=== PATIENT | female | born 1985 | race Hispanic/Latino ===

== ENCOUNTER 2016-12-27 19:17 | Emergency (ER) | payer MEDICAID ==
[2016-12-27 20:10] LABS: Urine Drugs of Abuse Note Disclamer
[2016-12-27 20:22] LABS: Bacteria,Urine 1+ /HPF (Negative); Bilirubin,Urine NEG (Negative); Blood,Urine NEG (Negative); Ketones,Urine TR mg/dL (Negative); Leukocyte Esterase,Urine NEG (Negative); Mucus,Urine 3+ /HPF; Nitrite,Urine NEG (Negative); RBC,Urine < 1.0 /HPF (0.0-6.0); Urobilinogen,Urine < 2.0 mg/dL (<2.0)
[2016-12-27 20:41] LABS: Basophils % (Auto) 0.5 % (0.0-1.8); Eosinophils % (Auto) 0.5 % (0.0-4.3); Hematocrit 44.4 % (30.3-42.9); Hemoglobin 14.7 gm/dl (10.1-14.3); Mean Corpuscular HGB Conc 33 % (30-34); Mean Corpuscular Hemoglobin 28 pg (28-32); Mean Corpuscular Volume 85 fl (79-97); Platelet Count 353 K/mm3 (140-440); Red Blood Count 5.21 M/mm3 (3.65-5.03); Red Cell Distribution Width 14.5 % (13.2-15.2); White Blood Count 13.5 K/mm3 (4.5-11.0)
[2016-12-27 21:09] LABS: Anion Gap 24 mmol/L; Blood Urea Nitrogen 9 mg/dL (7-17); Calcium 9.7 mg/dL (8.4-10.2); Carbon Dioxide 23 mmol/L (22-30); Chloride 95.9 mmol/L (98-107); Glucose 332 mg/dL (65-100); Sodium 139 mmol/L (137-145)
--- NOTE | 2016-12-27 22:21 | Emergency Department Report ---
ED General Adult HPI - General Chief complaint: Psych Stated complaint: POSSIBLY 1013 Time Seen by Provider: 12/27/16 20:47 Source: patient, RN notes reviewed, old records reviewed Mode of arrival: Ambulatory Limitations: No Limitations - History of Present Illness Initial comments: This is a 31-year-old female, the patient is previously unknown to me. The patient has a past medical history of psychiatric disease. As per triage documentation, patient is brought to the hospital by police department from a personal chcf, apparently the patient has been taking her psychiatric meds , and the patient endorses suicidality. She is not homicidal, she is not experiencing hallucinations, and she does not have access to guns or firearms. As per documentation from Police Department "I want to kill myself." The patient indicates no exacerbating or relieving factors, and she indicates that the symptoms have since resolved. No complaints at this time. Consistency: now resolved Improves with: none Worsens with: none Associated Symptoms: denies other symptoms - Related Data Home Medications Medication Instructions Recorded Confirmed Last Taken Glimepiride [Amaryl] 4 mg PO BID 11/24/15 12/28/16 11/23/15 Insulin NPH Hum/Reg Insulin Hm 22 unit SQ QHS 11/24/15 12/28/16 11/23/15 [HumuLIN 70/30 Kwikpen] [place] Carbonate 150 mg PO BID 11/24/15 12/28/16 Unknown cloZAPine 100 mg PO DAILY 11/24/15 12/28/16 Unknown cloZAPine 350 mg PO QHS 11/24/15 12/28/16 Unknown metFORMIN [Glucophage] 850 mg PO BID 11/24/15 12/28/16 11/23/15 risperiDONE [RisperDAL] 2 mg PO BID 11/24/15 12/28/16 Unknown Allergies Allergy/AdvReac Type Severity Reaction Status Date / Time aripiprazole [From Abilify] Allergy Hives Verified 02/17/13 22:10 chlorpromazine HCl Allergy Hives Verified 02/17/13 22:10 [From Thorazine] codeine Allergy Hives Verified 02/17/13 22:10 haloperidol [From Haldol] Allergy Hives Verified 02/17/13 22:10 haloperidol lactate Allergy Hives Verified 02/17/13 22:10 [From Haldol] lorazepam [From Ativan] Allergy Hives Verified 02/17/13 22:10 Penicillins Allergy Hives Verified 02/17/13 22:10 ziprasidone HCl [From Geodon] Allergy Hives Verified 02/17/13 22:10 ziprasidone mesylate Allergy Hives Verified 02/17/13 22:10 [From Geodon] ED Review of Systems ROS: Stated complaint: POSSIBLY 1013 Other details as noted in HPI Constitutional: denies: fever Eyes: denies: vision change ENT: denies: epistaxis Respiratory: denies: cough Cardiovascular: denies: chest pain Gastrointestinal: denies: abdominal pain Genitourinary: denies: dysuria Musculoskeletal: denies: back pain Skin: denies: lesions Neurological: denies: weakness Psychiatric: denies: homicidal thoughts ED Past Medical Hx - Past Medical History Previous Medical History?: Yes Hx Diabetes: Yes Hx Psychiatric Treatment: Yes (schizoaffective disorder) - Surgical History Past Surgical History?: Yes Additional Surgical History: c- section 2008 - Social History Smoking Status: Current Every Day Smoker Substance Use Type: None - Medications Home Medications: Home Medications Medication Instructions Recorded Confirmed Last Taken Type Glimepiride [Amaryl] 4 mg PO BID 11/24/15 12/28/16 11/23/15 History Insulin NPH Hum/Reg Insulin Hm 22 unit SQ QHS 11/24/15 12/28/16 11/23/15 History [HumuLIN 70/30 Kwikpen] [place] Carbonate 150 mg PO BID 11/24/15 12/28/16 Unknown History cloZAPine 100 mg PO DAILY 11/24/15 12/28/16 Unknown History cloZAPine 350 mg PO QHS 11/24/15 12/28/16 Unknown History metFORMIN [Glucophage] 850 mg PO BID 11/24/15 12/28/16 11/23/15 History risperiDONE [RisperDAL] 2 mg PO BID 11/24/15 12/28/16 Unknown History ED Physical Exam - General Limitations: No Limitations General appearance: alert, in no apparent distress - Head Head exam: Present: atraumatic, normocephalic - Eye Eye exam: Present: normal appearance, PERRL, EOMI, other (visual acuity intact to finger counting, color perception, reading at a close distance). Absent: nystagmus - ENT ENT exam: Present: normal exam, normal orophraynx, mucous membranes moist, normal external ear exam - Neck Neck exam: Present: normal inspection, full ROM. Absent: tenderness, meningismus - Respiratory Respiratory exam: Present: normal lung sounds bilaterally. Absent: respiratory distress, wheezes, rales, rhonchi, stridor, chest wall tenderness, accessory muscle use, decreased breath sounds, prolonged expiratory - Cardiovascular Cardiovascular Exam: Present: regular rate, normal rhythm, normal heart sounds. Absent: bradycardia, tachycardia, irregular rhythm, systolic murmur, diastolic murmur, rubs, gallop - GI/Abdominal GI/Abdominal exam: Present: soft, normal bowel sounds. Absent: distended, tenderness, guarding, rebound, rigid, pulsatile mass - Extremities Exam Extremities exam: Present: normal inspection, full ROM, normal capillary refill. Absent: tenderness, pedal edema, joint swelling, calf tenderness - Back Exam Back exam: Present: normal inspection, full ROM. Absent: tenderness, CVA tenderness (R), CVA tenderness (L), muscle spasm, paraspinal tenderness, vertebral tenderness - Neurological Exam Neurological exam: Present: alert, oriented X3, normal gait, other (Extraocular movements intact. Tongue midline. No facial droop. Facial sensation intact to light touch in the V1, V2, V3 distribution bilaterally. 5 and 5 strength in 4 extremities.. Sensation is intact to light touch in 4 extremities.). Absent : motor sensory deficit - Psychiatric Psychiatric exam: Present: normal affect, normal mood - Skin Skin exam: Present: warm, dry, intact, normal color. Absent: rash ED Course Vital Signs 12/27/16 19:24 Temperature 98.6 F Pulse Rate 93 H Respiratory 20 Rate Blood Pressure 112/84 O2 Sat by Pulse 98 Oximetry ED Medical Decision Making - Lab Data Result diagrams: 12/27/16 20:15 12/27/16 20:15 Vital Signs 12/27/16 19:24 Temperature 98.6 F Pulse Rate 93 H Respiratory 20 Rate Blood Pressure 112/84 O2 Sat by Pulse 98 Oximetry Lab Results 12/27/16 12/27/16 12/27/16 Range/Units 20:00 20:00 20:15 WBC (4.5-11.0) K/mm3 RBC (3.65-5.03) M/mm3 Hgb (10.1-14.3) gm/dl Hct (30.3-42.9) % MCV (79-97) fl MCH (28-32) pg MCHC (30-34) % RDW (13.2-15.2) % Plt Count (140-440) K/mm3 Lymph % (Auto) (13.4-35.0) % [place] % (Auto) (0.0-7.3) % Eos % (Auto) (0.0-4.3) % Baso % (Auto) (0.0-1.8) % Lymph # (1.2-5.4) K/mm3 [place] # (0.0-0.8) K/mm3 Eos # (0.0-0.4) K/mm3 Baso # (0.0-0.1) K/mm3 Seg Neutrophils % (40.0-70.0) % Seg Neutrophils # (1.8-7.7) K/mm3 Sodium 139 (137-145) mmol/L Potassium 4.0 (3.6-5.0) mmol/L Chloride 95.9 L (98-107) mmol/L Carbon Dioxide 23 (22-30) mmol/L Anion Gap 24 mmol/L BUN 9 (7-17) mg/dL Creatinine 0.4 L (0.7-1.2) mg/dL Estimated GFR > 60 ml/min BUN/Creatinine Ratio 22.50 % Glucose 332 H (65-100) mg/dL Calcium 9.7 (8.4-10.2) mg/dL Total Creatine Kinase (30-135) units/L HCG, Qual (Negative) Urine Color Yellow (Yellow) Urine Turbidity Clear (Clear) Urine pH 5.0 (5.0-7.0) Ur Specific [place] 1.024 (1.003-1.030) Urine Protein 100 mg/dl (Negative) mg/dL Urine Glucose (UA) >=500 (Negative) mg/dL Urine Ketones Tr (Negative) mg/dL Urine Blood Neg (Negative) Urine Nitrite Neg (Negative) Urine Bilirubin Neg (Negative) Urine Urobilinogen < 2.0 (<2.0) mg/dL Ur Leukocyte Esterase Neg (Negative) Urine WBC (Auto) 3.0 (0.0-6.0) /HPF Urine RBC (Auto) < 1.0 (0.0-6.0) /HPF U Epithel Cells (Auto) 4.0 (0-13.0) /HPF Urine Bacteria (Auto) 1+ (Negative) /HPF Urine Mucus 3+ /HPF Salicylates (2.8-20.0) mg/dL Urine Opiates Screen Presumptive negative Urine Methadone Screen Presumptive negative Acetaminophen (10.0-30.0) ug/mL Ur Barbiturates Screen Presumptive negative Ur Phencyclidine Scrn Presumptive negative Ur Amphetamines Screen Presumptive negative U Benzodiazepines Scrn Presumptive negative [place] (0.0-1.2) mmol/L Urine Cocaine Screen Presumptive negative U Marijuana (THC) Screen Presumptive negative Drugs of Abuse Note Disclamer Plasma/Serum Alcohol (0-0.07) gm% 12/27/16 12/27/16 12/27/16 Range/Units 20:15 20:15 20:15 WBC 13.5 H (4.5-11.0) K/mm3 RBC 5.21 H (3.65-5.03) M/mm3 Hgb 14.7 H (10.1-14.3) gm/dl Hct 44.4 H (30.3-42.9) % MCV 85 (79-97) fl MCH 28 (28-32) pg MCHC 33 (30-34) % RDW 14.5 (13.2-15.2) % Plt Count 353 (140-440) K/mm3 Lymph % (Auto) 17.7 (13.4-35.0) % [place] % (Auto) 5.2 (0.0-7.3) % Eos % (Auto) 0.5 (0.0-4.3) % Baso % (Auto) 0.5 (0.0-1.8) % Lymph # 2.4 (1.2-5.4) K/mm3 [place] # 0.7 (0.0-0.8) K/mm3 Eos # 0.1 (0.0-0.4) K/mm3 Baso # 0.1 (0.0-0.1) K/mm3 Seg Neutrophils % 76.1 H (40.0-70.0) % Seg Neutrophils # 10.3 H (1.8-7.7) K/mm3 Sodium (137-145) mmol/L Potassium (3.6-5.0) mmol/L Chloride (98-107) mmol/L Carbon Dioxide (22-30) mmol/L Anion Gap mmol/L BUN (7-17) mg/dL Creatinine (0.7-1.2) mg/dL Estimated GFR ml/min BUN/Creatinine Ratio % Glucose (65-100) mg/dL Calcium (8.4-10.2) mg/dL Total Creatine Kinase (30-135) units/L HCG, Qual Negative (Negative) Urine Color (Yellow) Urine Turbidity (Clear) Urine pH (5.0-7.0) Ur Specific [place] (1.003-1.030) Urine Protein (Negative) mg/dL Urine Glucose (UA) (Negative) mg/dL Urine Ketones (Negative) mg/dL Urine Blood (Negative) Urine Nitrite (Negative) Urine Bilirubin (Negative) Urine Urobilinogen (<2.0) mg/dL Ur Leukocyte Esterase (Negative) Urine WBC (Auto) (0.0-6.0) /HPF Urine RBC (Auto) (0.0-6.0) /HPF U Epithel Cells (Auto) (0-13.0) /HPF Urine Bacteria (Auto) (Negative) /HPF Urine Mucus /HPF Salicylates (2.8-20.0) mg/dL Urine Opiates Screen Urine Methadone Screen Acetaminophen (10.0-30.0) ug/mL Ur Barbiturates Screen Ur Phencyclidine Scrn Ur Amphetamines Screen U Benzodiazepines Scrn [place] (0.0-1.2) mmol/L Urine Cocaine Screen U Marijuana (THC) Screen Drugs of Abuse Note Plasma/Serum Alcohol < 0.01 (0-0.07) gm% 12/27/16 12/27/16 12/27/16 Range/Units 20:51 20:51 20:51 WBC (4.5-11.0) K/mm3 RBC (3.65-5.03) M/mm3 Hgb (10.1-14.3) gm/dl Hct (30.3-42.9) % MCV (79-97) fl MCH (28-32) pg MCHC (30-34) % RDW (13.2-15.2) % Plt Count (140-440) K/mm3 Lymph % (Auto) (13.4-35.0) % [place] % (Auto) (0.0-7.3) % Eos % (Auto) (0.0-4.3) % Baso % (Auto) (0.0-1.8) % Lymph # (1.2-5.4) K/mm3 [place] # (0.0-0.8) K/mm3 Eos # (0.0-0.4) K/mm3 Baso # (0.0-0.1) K/mm3 Seg Neutrophils % (40.0-70.0) % Seg Neutrophils # (1.8-7.7) K/mm3 Sodium (137-145) mmol/L Potassium (3.6-5.0) mmol/L Chloride (98-107) mmol/L Carbon Dioxide (22-30) mmol/L Anion Gap mmol/L BUN (7-17) mg/dL Creatinine (0.7-1.2) mg/dL Estimated GFR ml/min BUN/Creatinine Ratio % Glucose (65-100) mg/dL Calcium (8.4-10.2) mg/dL Total Creatine Kinase 126 (30-135) units/L HCG, Qual (Negative) Urine Color (Yellow) Urine Turbidity (Clear) Urine pH (5.0-7.0) Ur Specific [place] (1.003-1.030) Urine Protein (Negative) mg/dL Urine Glucose (UA) (Negative) mg/dL Urine Ketones (Negative) mg/dL Urine Blood (Negative) Urine Nitrite (Negative) Urine Bilirubin (Negative) Urine Urobilinogen (<2.0) mg/dL Ur Leukocyte Esterase (Negative) Urine WBC (Auto) (0.0-6.0) /HPF Urine RBC (Auto) (0.0-6.0) /HPF U Epithel Cells (Auto) (0-13.0) /HPF Urine Bacteria (Auto) (Negative) /HPF Urine Mucus /HPF Salicylates < 0.3 L (2.8-20.0) mg/dL Urine Opiates Screen Urine Methadone Screen Acetaminophen < 15.0 (10.0-30.0) ug/mL Ur Barbiturates Screen Ur Phencyclidine Scrn Ur Amphetamines Screen U Benzodiazepines Scrn [place] 0.1 (0.0-1.2) mmol/L Urine Cocaine Screen U Marijuana (THC) Screen Drugs of Abuse Note Plasma/Serum Alcohol (0-0.07) gm% - Medical Decision Making Differential diagnosis: Mood disorder, medical clearance for psychiatric placement, professor of social work situation Assessment and plan: 31-year-old female with resolved suicidality. She is afebrile, with reassuring vital signs, clinically sober, has a GCS of 15, with an NIH score of 0. She is placed on a 1013, apparently some of her presentation is secondary to underlying issues with her current detention, mental health has been consult, and the patient is medically suitable for psychiatric admission/evaluation, consultation and placement if they deem it necessary. However, it seems that the patient's main issue at this time appears to be more psychosocial rather than truly psychiatric decompensation, and most likely the patient's may be psychiatrically discharged within the next 24 [address] Be found for her. I will defer to psychiatry and to social work to further manage this. Critical care attestation.: If time is entered above; I have spent that time in minutes in the direct care of this critically ill patient, excluding procedure time. ED Disposition Clinical Impression: Medical clearance for psychiatric admission Disposition: [id number] PSY HOSP/PSY UNIT Is pt being admited?: No Does the pt Need Aspirin: No Condition: Stable Referrals: PRIMARY CARE, [Primary Care Provider] - 3-5 Days
[2016-12-27 22:31] LABS: Lithium 0.1 mmol/L (0.0-1.2)
[2016-12-27 22:32] LABS: Salicylate < 0.3 mg/dL (2.8-20.0)
[2016-12-28] MEDS: AMARYL PO SCH ×2 (08:35→18:44)
[2016-12-28] MEDS ORDERED: RISPERIDONE PO SCH (10:00)
[2016-12-28] MEDS: GLUCOPHAGE PO SCH ×3 (10:35→22:30)
[2016-12-28] MEDS: ESKALITH PO SCH ×3 (11:07→22:12)
[2016-12-28] MEDS: RisperDAL PO SCH ×6 (11:07→22:11)
[2016-12-28] MEDS ORDERED: ATIVAN PO ONE (20:07)
[2016-12-29] MEDS: AMARYL PO SCH ×2 (07:42→17:23)
[2016-12-29] MEDS: GLUCOPHAGE PO SCH ×2 (10:02→22:00)
[2016-12-29] MEDS: RisperDAL PO SCH ×2 (10:02)
[2016-12-29] MEDS: ESKALITH PO SCH (10:02)
--- NOTE | 2016-12-29 12:48 | Consultation ---
History of Present Illness - Reason for Consult Consult date: 12/29/16 Reason for consult: Mental Health Evaluation Requesting physician: MARIBELL SHARIF - Chief Complaint Chief complaint: "I just want to move" - History of Present Psychiatric Illness 31 y.o. white female presenting to [facility] for SI's. Today patient is calm and cooperative. She stated that she want had an discussion with her detention director because of the way she is being treated. She stated the director got upset with her and called the police. Per the patient, the detention director told the police that she was suicidal with a plan. The patient is adamant that she didn't endorse suicide. She stated that the staff at this detention treat her with no respect. She stated that she would like to move to another detention if possible. She stated being compliant with her medication (Clozaril). She denies SI/HI's, AVH's, and depression. She denies recreational drug use and alcohol consumption (etoh). Medications and Allergies Allergies Allergy/AdvReac Type Severity Reaction Status Date / Time aripiprazole [From Abilify] Allergy Hives Verified 02/17/13 22:10 chlorpromazine HCl Allergy Hives Verified 02/17/13 22:10 [From Thorazine] codeine Allergy Hives Verified 02/17/13 22:10 haloperidol [From Haldol] Allergy Hives Verified 02/17/13 22:10 haloperidol lactate Allergy Hives Verified 02/17/13 22:10 [From Haldol] lorazepam [From Ativan] Allergy Hives Verified 02/17/13 22:10 Penicillins Allergy Hives Verified 02/17/13 22:10 ziprasidone HCl [From Geodon] Allergy Hives Verified 02/17/13 22:10 ziprasidone mesylate Allergy Hives Verified 02/17/13 22:10 [From Geodon] Home Medications Medication Instructions Recorded Confirmed Last Taken Type Glimepiride [Amaryl] 4 mg PO BID 11/24/15 12/28/16 11/23/15 History Insulin NPH Hum/Reg Insulin Hm 22 unit SQ QHS 11/24/15 12/28/16 11/23/15 History [HumuLIN 70/30 Kwikpen] [place] Carbonate 150 mg PO BID 11/24/15 12/28/16 Unknown History cloZAPine 100 mg PO DAILY 11/24/15 12/28/16 Unknown History cloZAPine 350 mg PO QHS 11/24/15 12/28/16 Unknown History metFORMIN [Glucophage] 850 mg PO BID 11/24/15 12/28/16 11/23/15 History risperiDONE [RisperDAL] 2 mg PO BID 11/24/15 12/28/16 Unknown History Active Meds: Active Medications Glimepiride (Amaryl) 4 mg PO BIDDIAB [facility] Last Admin: 12/29/16 07:42 Dose: 4 mg Metformin HCl (Glucophage) 850 mg PO BID [facility] Last Admin: 12/29/16 10:02 Dose: 850 mg Past psychiatric history - Past Medical History Past Medical History: diabetes Past Surgical History: No surgical history - past Psychiatric treatment and history Psych: Bipolar, Schizophrenia Mental Status Exam - Vital signs Last Vital Signs Temp 98 F 12/29/16 09:45 Pulse 97 H 12/29/16 09:45 Resp 16 12/29/16 09:45 BP 117/77 12/29/16 09:45 Pulse Ox 98 12/29/16 09:45 - Exam Narrative exam: ROS: (-) psychosis, (-) depression MSE: Appearance: calm, cooperative Behavior: regular eye contact Speech: regular rate and tone Mood: "okay" Affect: congruent to mood Thought Process: linear Thought Content: denies SI/HI's and AVH's Motor Activity: ambulatory Cognition: A/Ox 3 Insight: fair Judgment: fair Results Result Diagrams: 12/27/16 20:15 12/27/16 20:15 Abnormal lab results 12/29/16 Range/Units 07:27 POC Glucose 304 H (70-105) All other labs normal. Assessment and Plan Assessment and plan: Impression: Historical Dx: Schizoaffective DO. Today patient is calm and cooperative. Patient want to move to another group. Patient is no threat to self. Recommendation/Plan: Rescind 1013. Patient can follow-up with her psychiatrist Dr Galeano. She do not need a prescription. Instructional Technology Coordinator involvement, patient may need placement.
[2016-12-30 04:40] VITALS: BP 116/80
[2016-12-30] MEDS: AMARYL PO SCH (08:15)
[2016-12-30] MEDS: GLUCOPHAGE PO SCH (10:40)
== END 2016-12-30 14:30 | disposition home or self-care (01) ==
LOC: ED 19:17 → EEVIPCON 19:17 → ED 12-30 14:30
DX: R45.851 Suicidal ideations (principal); E11.9 Type 2 diabetes mellitus without complications; F20.9 Schizophrenia, unspecified; F17.200 Nicotine dependence, unspecified, uncomplicated; Z88.8 Allergy status to other drugs, medicaments and biological substances; Z88.0 Allergy status to penicillin; Z79.82 Long term (current) use of aspirin
CPT/HCPCS: 36415; 80048; 80178; 80307; 81001; 82550; 82962; 84703; 85025; 99284; G0480; 80320